=== PATIENT | male | born 1980 | race Caucasian/White ===

== ENCOUNTER → 2017-03-18 | Outpatient (CLI) | payer BC ==
[~2017-03-18] MED LIST: ALLO300T2 PO; CARV12.52 PO; LISI10TA PO; OPTIRAY 320 IV PRN
[2017-03-18 15:57] LABS: PLATELET COUNT 264 K/uL (130-400)
[2017-03-18 16:04] LABS: ALT/SGPT 46 U/L (12-78); AST/SGOT 29 U/L (15-37); BLOOD UREA NITROGEN 7 mg/dl (7-18); BUN/CREATININE RATIO 8.2 (10-20); CALCIUM 9.1 mg/dl (8.5-10.1); CARBON DIOXIDE 27 mmol/L (21-32); CHLORIDE 108 mmol/L (98-107); CREATININE 0.82 mg/dl (0.60-1.40); GLUCOSE 88 mg/dl (70-99); SODIUM 142 mmol/L (136-145)
[2017-03-18 16:07] LABS: ALKALINE PHOSPHATASE 78 U/L (45-117)
[2017-03-18 16:28] LABS: HEMATOCRIT 42.3 % (42-52); MEAN CELL VOLUME 89.4 fL (80-100); MEAN CORPUSCULAR HEMOGLOBIN 30.4 pg (25-34); RED BLOOD COUNT 4.73 M/uL (4.7-6.1); WHITE BLOOD COUNT 8.19 K/uL (4.8-10.8)
[2017-03-18 16:29] LABS: BASO % 0.5 %; BASO ABS # 0.04 K/uL (0-0.2); COMPLETE YES; EOS % 3.1 %; IG% 0.1 %; LYMPH % 24.5 %; LYMPH ABS # 2.01 K/uL (1.2-3.4); MONO % 13.4 %; NEUT % 58.4 %
--- NOTE | 2017-03-18 18:09 | DIAGNOSTIC IMAGING REPORT ---
ADDENDUM Addendum: The first impression should read mild acute sigmoid diverticulitis. No free air or abscess. Electronically signed by: Michele Zimmerman M.D. 03/18/2017 6:11 PM Dictated Date/Time: 03/18/2017 6:[address] OF THE ABDOMEN AND PELVIS WITH CONTRAST CLINICAL HISTORY: Abdominal pain. Suprapubic tenderness. COMPARISON STUDY: None. TECHNIQUE: Following IV administration of 115 mL of Optiray-[id number], axial images of the abdomen and pelvis were obtained from the lung bases to the proximal femurs. Images were reviewed in the axial, sagittal, and coronal planes. IV contrast was administered without complication. Oral contrast was administered. CT DOSE: 1108.90 mGy.cm FINDINGS: The liver, spleen, adrenal glands, pancreas and right kidney are normal. There is a 2 cm water attenuation lesion arising from the upper pole of the left kidney consistent with a cyst. There is no hydronephrosis. There is no evidence for a bowel obstruction. The appendix is normal. There is sigmoid diverticulosis with mild wall thickening of the proximal sigmoid colon. An inflamed diverticulum with mild adjacent infiltration is noted. There is no free air or abscess. A fat-containing left inguinal hernia is noted. There is a fat-containing umbilical hernia. Nonenlarged ileocolic lymph nodes are abnormal in number only. No suspicious osseous lesions are present. IMPRESSION: 1. Mild acute sigmoid diverticulosis. No free air or abscess. 2. 2 cm left renal cyst. 3. Normal appendix. No bowel obstruction. Electronically signed by: Michele Zimmerman M.D. 03/18/2017 6:08 PM Dictated Date/Time: 03/18/2017 6:02 PM
== END | disposition home or self-care (01) ==
LOC: C.CTS 15:11
PROVIDERS: ATTEND Student in an Organized Health Care Education/Training Program
DX: R10.9 Unspecified abdominal pain (principal); N28.1 Cyst of kidney, acquired